=== PATIENT | male | born 1960 | race Caucasian/White ===

== ENCOUNTER 2018-05-19 07:36 | Day surgery (SDC) | payer OTHER ==
[~2018-05-19 07:36] MED LIST: CEFAZOLIN 1 GM INJ; DESFLURANE 15 MIN; DEXAMETHASONE 4 MG/ML 5 ML INJ; GLYCOPYRROLATE 0.4 MG INJ; LIDOCAINE 2% (SDV) 5 ML INJ; NEOSTIGMINE 3 MG/3 ML SYRINGE; ONDANSETRON 4 MG INJ; PROPOFOL 200 MG INJ; ROCURONIUM 50 MG INJ; SUCCINYLCHOLINE CHLORIDE 100 MG/5 ML SYG IV; SUGAMMADEX SODIUM 200 MG/2 ML VIAL IV
[2018-05-19] MEDS ORDERED: MIDAZOLAM 1 MG/ML 2 ML INJ (10:39)
[2018-05-19] MEDS ORDERED: FENTAnyl 50 MCG/ML VIAL (10:39)
[2018-05-19] MEDS ORDERED: METOCLOPRAMIDE 10 MG INJ (10:41)
[2018-05-19 10:54] LABS: ADD MAN DIFF? NO
[2018-05-19 10:58] LABS: ADD UMIC NO; BASOPHILS % 0.3 % (0.0-2.0); EOSINOPHILS # 0.2 10^3/ul (0.0-0.5); EOSINOPHILS % 2.4 % (0.0-7.0); HEMOGLOBIN 16.3 g/dl (14.0-18.0); LYMPHOCYTES # 2.2 10^3/ul (0.8-2.9); LYMPHOCYTES % 35.8 % (15.0-51.0); MEAN CORPUSCULAR HEMOGLOBIN 29.2 pg (29.0-33.0); MEAN PLATELET VOLUME 9.4 fl (7.4-10.4); MONOCYTE # 0.4 10^3/ul (0.3-0.9); NEUTROPHIL # 3.3 10^3/ul (1.6-7.5); NEUTROPHILS % 54.2 % (39.0-77.0); PLATELET COUNT 302 10^3/UL (140-415); RED BLOOD COUNT 5.58 10^6/ul (4.70-6.10); RED CELL DISTRIBUTION WIDTH 12.9 % (11.5-14.5); UR ASCORBIC ACID NEGATIVE (NEGATIVE); UR BILIRUBIN (Dip) NEGATIVE (NEGATIVE); UR BLOOD (Dip) NEGATIVE (NEGATIVE); UR CLARITY CLEAR (CLEAR); UR COLOR YELLOW (YELLOW); UR GLUCOSE (Dip) NEGATIVE (NEGATIVE); UR KETONES (Dip) NEGATIVE (NEGATIVE); UR LEUKOCYTE ESTERASE (Dip) NEGATIVE Leu/ul (NEGATIVE); UR NITRITE (Dip) NEGATIVE (NEGATIVE); UR SPECIFIC GRAVITY (Dip) 1.024 (1.003-1.030); UR TOTAL PROTEIN (Dip) NEGATIVE (NEGATIVE); UR UROBILINOGEN (Dip) 1+ mg/dL (NEGATIVE)
[2018-05-19 10:58] LABS: WHITE BLOOD COUNT 6.2 10^3/ul (4.8-10.8)
[2018-05-19 11:17] LABS: ALANINE AMINOTRANSFERASE 85 IU/L (13-69); ALBUMIN 4.3 g/dl (3.3-4.9); ALKALINE PHOSPHATASE 90 IU/L (42-121); ANION GAP 9 (5-13); ASPARTATE AMINO TRANSFERASE 44 IU/L (15-46); BILIRUBIN,INDIRECT 0.7 mg/dl (0-1.1); BILIRUBIN,TOTAL 0.7 mg/dl (0.2-1.3); BLOOD UREA NITROGEN 14 mg/dl (7-20); CALCIUM 9.6 mg/dl (8.4-10.2); CARBON DIOXIDE 26 mmol/L (21-31); CHLORIDE 105 mmol/L (97-110); Estimated GFR > 60 mL/min (>60); GLUCOSE 157 mg/dl (70-220); POTASSIUM 3.9 mmol/L (3.5-5.1); PROTIME 12.3 Sec (11.9-14.9); SODIUM 140 mmol/L (135-144); TOTAL PROTEIN 7.6 g/dl (6.1-8.1)
[2018-05-19 11:18] LABS: PARTIAL THROMBOPLASTIN TIME 28.8 Sec (23.0-35.0)
[2018-05-19 11:24] LABS: CREATININE 0.59 mg/dl (0.61-1.24)
[2018-05-19] MEDS ORDERED: HYDROmorphONE 1 MG/5 ML IV SYRINGE IV ×2 (12:00)
[2018-05-19] MEDS ORDERED: KETOROLAC 30 MG INJ IV (12:00)
[2018-05-19] MEDS ORDERED: LABETALOL HCL 20MG INJ IV (12:00)
[2018-05-19] MEDS ORDERED: DIPHENHYDRAMINE 50 MG INJ IV (12:00)
[2018-05-19] MEDS ORDERED: FENTAnyl 50 MCG/ML VIAL IV (12:00)
[2018-05-19] MEDS ORDERED: MEPERIDINE 25 MG INJ IV (12:00)
[2018-05-19] MEDS ORDERED: ONDANSETRON 4 MG INJ IV (12:00)
[2018-05-19] MEDS: BUPIVACAINE 0.25% (MPF) 30 ML INJ (12:13)
[2018-05-19] MEDS: POLYMYXIN/BACITRACIN 1L IRRIG (12:13)
[2018-05-19] MEDS: LIDOCAINE 1% (MPF) 30 ML INJ (12:14)
[2018-05-19] MEDS ORDERED: ROPIVACAINE 0.5 % 30 ML VIAL (12:31)
[2018-05-19] MEDS: hydrALAzine 20 MG INJ IV (13:27)
[2018-05-19] MEDS: LEVALBUTEROL (NEB) 1.25 MG/0.5 ML AMP HHN (13:30)
[2018-05-19] MEDS: IPRATROPIUM (NEB) 0.5 MG/2.5 ML AMP HHN (13:33)
[2018-05-19] MEDS: HYDROmorphONE 1 MG/5 ML IV SYRINGE IV ×2 (14:02→14:15)
[2018-05-19] MEDS: FENTAnyl 50 MCG/ML VIAL IV ×2 (14:03→14:17)
== END 2018-05-19 15:08 | disposition home or self-care (01) ==
LOC: SDS 07:36
DX: K43.2 Incisional hernia without obstruction or gangrene (principal); I10 Essential (primary) hypertension; E78.5 Hyperlipidemia, unspecified
CPT/HCPCS: 49570; 71045; 80053; 81003; 85025; 85610; 85730; 93005; 94664